=== PATIENT | female | born 1990 | race Caucasian/White ===

== ENCOUNTER 2016-02-26 18:42 | Emergency (ER) | payer OTHER ==
[~2016-02-26] VITALS: Ht 162.6 cm; Wt 103.4 kg
[~2016-02-26 18:42] MED LIST: CLINDAMYCIN HC300 MG PO
[2016-02-26 19:08] LABS: HEMATOCRIT 43.2 % (36.0-46.0); MCH 29.1 PG (29.0-34.0); MCHC 33.8 G/DL (30.0-36.0); MCV 86.1 FL (83-99); MEAN PLAT.VOLUME 9.3 uM^3 (9.5-12.4); PLATELET COUNT 268 K/uL (156-360); RBC DIS.WIDTH-CV 13.3 % (11.8-14.6); RBC DIS.WIDTH-SD 41.2 % (39-53); RED BLOOD COUNT 5.02 M/uL (3.80-5.20); WHITE BLOOD COUNT 11.8 K/uL (4.1-10.2)
[2016-02-26] MEDS ORDERED: NITROFURANTOIN100 M3 PO (20:11)
[2016-02-26] MEDS ORDERED: VITAFOL-OB+DHA1 EACH PO (20:12)
[2016-02-26] MEDS ORDERED: OMEPRAZOLE20 MG PO (20:12)
[2016-02-26 20:21] LABS: ADD MIUA? YES; BILIRUBIN NEGATIVE; BLOOD LARGE; COLOR YELLOW ((YELLOW)); GLUCOSE (STRIP) NEGATIVE; KETONES 15; LEUKOCYTES NEGATIVE; NITRITE NEGATIVE; PH, URINE 5.5 (5-8); PROTEIN (STRIP) NEGATIVE; SPECIFIC GRAVITY 1.028 (1.000-1.030); UROBILINOGEN 0.2 MG/DL (0.2-1.0)
[2016-02-26 20:53] LABS: MUCUS NONE SEEN; RED BLOOD CELLS 20-30 /HPF (0-5); WHITE BLOOD CELLS NONE SEEN /HPF (0-5)
[2016-02-26 20:54] LABS: BACTERIA RARE; CASTS NONE SEEN /LPF; CRYSTALS NONE SEEN; EPITHELIAL CELLS 1+; UCUL ADDED? NO
[2016-02-26] MEDS ORDERED: PERCOCET 7.51 TABLET PO (22:01)
[2016-02-26] MEDS ORDERED: COLACE100 MG PO (22:01)
[2016-02-26 22:50] VITALS: BP 140/93
== END 2016-02-26 22:51 | disposition home or self-care (01) ==
LOC: EME 18:42
DX: O03.9 Complete or unspecified spontaneous abortion without complication (principal); Z87.891 Personal history of nicotine dependence
CPT/HCPCS: 76801; 81003; 84702; 85027; 86900; 86901; 88305; 99281; 99284

== ENCOUNTER 2017-08-31 12:54 | Emergency (ER) | payer OTHER ==
[~2017-08-31] VITALS: Ht 162.6 cm; Wt 107.0 kg
[~2017-08-31 12:54] MED LIST changes: +COLACE100 MG PO; +NITROFURANTOIN100 M3 PO; +OMEPRAZOLE20 MG PO; +PERCOCET 7.51 TABLET PO; +VITAFOL-OB+DHA1 EACH PO
[2017-08-31 13:45] LABS: HEMATOCRIT 41.8 % (36.0-46.0); MCH 27.6 PG (29.0-34.0); MCHC 33.5 G/DL (30.0-36.0); MCV 82.4 FL (83-99); PLATELET COUNT 285 K/uL (156-360); RBC DIS.WIDTH-CV 14.3 % (11.8-14.6); RBC DIS.WIDTH-SD 43.1 % (39-53); RED BLOOD COUNT 5.07 M/uL (3.80-5.20); WHITE BLOOD COUNT 10.1 K/uL (4.1-10.2)
[2017-08-31 13:55] LABS: CHLORIDE 105 mEq/L (99-109); POTASSIUM 3.9 mEq/L (3.7-5.4); SODIUM 139 mEq/L (136-147)
[2017-08-31 13:57] LABS: GLUCOSE 91 mg/dL (70-99)
[2017-08-31 14:01] LABS: GFR ESTIMATE (CALCULATED) > 59 mL/min/; UREA NITROGEN (BUN) 14 mg/dL (9-23)
[2017-08-31 14:09] LABS: ALBUMIN 4.2 g/dL (3.2-4.8)
[2017-08-31 14:12] LABS: TOTAL PROTEIN 7.5 g/dL (6.4-8.3)
[2017-08-31 14:14] LABS: TOTAL BILIRUBIN 0.2 mg/dL (0.0-1.0)
[2017-08-31 14:15] LABS: ALKALINE PHOSPHATASE 129 IU/L (3-129)
[2017-08-31 14:17] LABS: AST (GOT) 17 IU/L (2-34)
[2017-08-31 14:18] LABS: ALT (GPT) 21 IU/L (3-49); DIRECT BILIRUBIN 0.1 mg/dL (0.0-0.3)
[2017-08-31 14:19] LABS: LIPASE 12 U/L (1.0-51.0)
[2017-08-31 15:24] LABS: APPEARANCE SL.HAZY ((CLEAR)); BILIRUBIN NEGATIVE; BLOOD NEGATIVE; COLOR YELLOW ((YELLOW)); GLUCOSE (STRIP) NEGATIVE; KETONES NEGATIVE; LEUKOCYTES MODERATE; NITRITE POSITIVE; PROTEIN (STRIP) NEGATIVE; SPECIFIC GRAVITY 1.019 (1.000-1.030); UROBILINOGEN 0.2 MG/DL (0.2-1.0)
[2017-08-31 15:34] LABS: BACTERIA RARE /HPF; EPITHELIAL CELLS 1+ /HPF; MUCUS TRACE /LPF; RED BLOOD CELLS 0-5 /HPF (0-5); UCUL ADDED? YES; WHITE BLOOD CELLS 15-20 /HPF (0-5)
[2017-08-31] MEDS ORDERED: MOTRIN800 MG PO (16:01)
[2017-08-31] MEDS ORDERED: CIPRO500 MG PO (16:01)
[2017-08-31 16:11] VITALS: BP 108/63
== END 2017-08-31 16:11 | disposition home or self-care (01) ==
LOC: EME 12:54
DX: N39.0 Urinary tract infection, site not specified (principal); R10.13 Epigastric pain; R06.02 Shortness of breath; F17.200 Nicotine dependence, unspecified, uncomplicated
CPT/HCPCS: 71046; 80048; 80076; 81003; 83690; 85027; 87077; 87086; 87186

== ENCOUNTER 2017-09-21 17:12 | Inpatient (IN) | payer SELFPAY ==
[~2017-09-21] VITALS: Ht 162.6 cm; Wt 117.3 kg
[~2017-09-21 17:12] MED LIST changes: +CIPRO500 MG PO; +MOTRIN800 MG PO
[2017-09-21 17:45] LABS: HEMATOCRIT 42.7 % (36.0-46.0); HEMOGLOBIN 14.4 G/DL (11.9-15.5); MCH 27.8 PG (29.0-34.0); MCHC 33.7 G/DL (30.0-36.0); MCV 82.4 FL (83-99); PLATELET COUNT 302 K/uL (156-360); RBC DIS.WIDTH-CV 13.5 % (11.8-14.6); RBC DIS.WIDTH-SD 40.3 % (39-53); RED BLOOD COUNT 5.18 M/uL (3.80-5.20)
[2017-09-21 17:58] LABS: ALBUMIN 4.1 g/dL (3.2-4.8)
[2017-09-21 17:59] LABS: CHLORIDE 108 mEq/L (99-109); SODIUM 141 mEq/L (136-147)
[2017-09-21 18:01] LABS: GLUCOSE 145 mg/dL (70-99); TOTAL PROTEIN 7.4 g/dL (6.4-8.3)
[2017-09-21 18:03] LABS: TOTAL BILIRUBIN 0.9 mg/dL (0.0-1.0)
[2017-09-21 18:04] LABS: ALKALINE PHOSPHATASE 155 IU/L (3-129)
[2017-09-21 18:05] LABS: CREATININE 0.9 mg/dL (0.6-1.3); GFR ESTIMATE (CALCULATED) > 59 mL/min/
[2017-09-21 18:06] LABS: UREA NITROGEN (BUN) 12 mg/dL (9-23)
[2017-09-21 18:08] LABS: ALT (GPT) 57 IU/L (3-49)
[2017-09-21 18:13] LABS: QUANTITATIVE HCG < 4.0 MIU/ML
[2017-09-21 18:27] LABS: AST (GOT) 75 IU/L (2-34); LIPASE 6 U/L (1.0-51.0)
[2017-09-21] MEDS ORDERED: IBUPROFEN800 MG PO (21:44)
[2017-09-21] MEDS ORDERED: CIPROFLOXACIN500 M1 PO (21:44)
[2017-09-21] MEDS ORDERED: ZANTAC150 MG PO (21:45)
[2017-09-21 22:31] LABS: APPEARANCE CLEAR ((CLEAR)); BILIRUBIN NEGATIVE; BLOOD LARGE; COLOR YELLOW ((YELLOW)); GLUCOSE (STRIP) NEGATIVE; KETONES 5; LEUKOCYTES NEGATIVE; NITRITE NEGATIVE; PROTEIN (STRIP) NEGATIVE; SPECIFIC GRAVITY 1.047 (1.000-1.030)
[2017-09-21 22:48] LABS: BACTERIA RARE /HPF; EPITHELIAL CELLS RARE /HPF; MUCUS TRACE /LPF; RED BLOOD CELLS TNTC /HPF (0-5); UCUL ADDED? YES
[2017-09-21 23:53] VITALS: BP 101/57
[2017-09-22] VITALS (7 sets, daily range): BP systolic 102–138; BP diastolic 55–72
[2017-09-22 02:12] LABS: BENZODIAZEPINES, URINE SCREEN Negative (200 ng/mL)
[2017-09-22 05:48] LABS: CHLORIDE 111 MEQ/L (99-109); CREATININE 0.7 MG/DL (0.6-1.3); GFR ESTIMATE (CALCULATED) > 59 mL/min/; HEMATOCRIT 36.6 % (36.0-46.0); MCHC 33.3 G/DL (30.0-36.0); MCV 83.9 FL (83-99); POTASSIUM 4.1 MEQ/L (3.7-5.4); RBC DIS.WIDTH-CV 13.7 % (11.8-14.6); RBC DIS.WIDTH-SD 42.3 % (39-53); RED BLOOD COUNT 4.36 M/uL (3.80-5.20); SODIUM 141 MEQ/L (136-147); UREA NITROGEN (BUN) 7 mg/dL (9-23); WHITE BLOOD COUNT 9.3 K/uL (4.1-10.2)
[2017-09-22 05:53] LABS: HEMOGLOBIN 12.2 G/DL (11.9-15.5)
[2017-09-22 05:57] LABS: PLAT.SUFFICIENCY ADEQUATE
[2017-09-22 05:59] LABS: PLATELET COUNT 202 K/uL (156-360)
[2017-09-22 06:08] LABS: GLUCOSE 106 mg/dL (70-99)
[2017-09-22 10:57] LABS: ALBUMIN 3.3 G/DL (3.2-4.8); ALKALINE PHOSPHATASE 121 IU/L (3-129); ALT (GPT) 170 IU/L (3-49); AST (GOT) 180 IU/L (2-34); DIRECT BILIRUBIN 1.2 mg/dL (0.0-0.3); TOTAL BILIRUBIN 1.9 MG/DL (0.0-1.0); TOTAL PROTEIN 5.7 G/DL (6.4-8.3)
[2017-09-22 12:18] LABS: HEMOGLOBIN 12.6 G/DL (11.9-15.5); MCH 27.9 PG (29.0-34.0); MCHC 33.2 G/DL (30.0-36.0); MCV 84.1 FL (83-99); PLATELET COUNT 217 K/uL (156-360); RBC DIS.WIDTH-CV 13.9 % (11.8-14.6); RBC DIS.WIDTH-SD 42.7 % (39-53); RED BLOOD COUNT 4.52 M/uL (3.80-5.20); WHITE BLOOD COUNT 7.8 K/uL (4.1-10.2)
[2017-09-23 08:25] VITALS: BP 112/66
[2017-09-23 15:36] VITALS: BP 128/70
[2017-09-23] MEDS ORDERED: ULTRAM50 MG PO (15:43)
== END 2017-09-23 17:19 | disposition home or self-care (01) | DRG 418 ==
LOC: EME 17:12 → EDOF 22:55 → ENRESERV 22:56 → 4EAST 23:31 → ENRESERV 09-22 08:13 → 2EAST 09-22 10:29 → ENPENDDIS 09-23 16:09 → 2EAST 09-23 17:19
PROVIDERS: Hospitalist; Surgery
PROC: 0FT44ZZ Resection of Gallbladder, Percutaneous Endoscopic Approach (ICD-10-PCS; principal; 2017-09-23)
DX: K80.12 Calculus of gallbladder with acute and chronic cholecystitis without obstruction (principal); F17.210 Nicotine dependence, cigarettes, uncomplicated; K21.9 Gastro-esophageal reflux disease without esophagitis; E66.9 Obesity, unspecified; Z68.41 Body mass index [BMI] 40.0-44.9, adult; Z83.3 Family history of diabetes mellitus; Z82.49 Family history of ischemic heart disease and other diseases of the circulatory system; Z79.899 Other long term (current) drug therapy
CPT/HCPCS: 74177; 76705; 80048; 80053; 80076; 80306 90; 81003; 83605; 83630; 83690; 84443; 84702; 85027; 87040; 87086; 87493; 87506; 87641; 88304; 93005; 99281; 99285; C9113; J1100; J1885; J1956; J2250; J2270; J2405; J2543; J2710; J2765; J3010; J7030; J7643; S0028

== ENCOUNTER 2017-09-24 03:22 | Inpatient (IN) | payer SELFPAY ==
[~2017-09-24] VITALS: Ht 162.6 cm; Wt 103.1 kg
[~2017-09-24 03:22] MED LIST changes: +CIPROFLOXACIN500 M1 PO; +IBUPROFEN800 MG PO; +ULTRAM50 MG PO; +ZANTAC150 MG PO
[2017-09-24 04:10] LABS: BASOPHIL (%) 0.1 % (0-1); EOSINOPHIL (%) 0 % (0-5); HEMATOCRIT 41.3 % (36.0-46.0); HEMOGLOBIN 14.2 G/DL (11.9-15.5); IMMATURE GRANULOCYTE (%) 0.4 % (0.0-0.7); LYMPHOCYTE (%) 7.8 % (15-42); LYMPHOCYTE COUNT 1.3 K/uL (1.0-2.8); MCH 28.1 PG (29.0-34.0); MCHC 34.4 G/DL (30.0-36.0); MCV 81.8 FL (83-99); MONOCYTE (%) 9.3 % (3-12); MONOCYTE COUNT 1.6 K/uL (0-0.8); NEUTROPHIL (%) 82.4 % (45-76); NEUTROPHIL COUNT 14.1 K/uL (1.8-6.4); PLATELET COUNT 275 K/uL (156-360); RBC DIS.WIDTH-CV 13.8 % (11.8-14.6); RBC DIS.WIDTH-SD 40.4 % (39-53); RED BLOOD COUNT 5.05 M/uL (3.80-5.20); WHITE BLOOD COUNT 17.1 K/uL (4.1-10.2)
[2017-09-24 04:18] LABS: ALBUMIN 4.2 g/dL (3.2-4.8); CHLORIDE 103 mEq/L (99-109); POTASSIUM 3.8 mEq/L (3.7-5.4); SODIUM 137 mEq/L (136-147)
[2017-09-24 04:21] LABS: GLUCOSE 121 mg/dL (70-99); TOTAL PROTEIN 7.6 g/dL (6.4-8.3)
[2017-09-24 04:24] LABS: CREATININE 0.9 mg/dL (0.6-1.3); GFR ESTIMATE (CALCULATED) > 59 mL/min/
[2017-09-24 04:25] LABS: UREA NITROGEN (BUN) 7 mg/dL (9-23)
[2017-09-24 04:28] LABS: LIPASE 33 U/L (1.0-51.0)
[2017-09-24 04:29] LABS: ALKALINE PHOSPHATASE 325 IU/L (3-129); ALT (GPT) 479 IU/L (3-49); AST (GOT) 254 IU/L (2-34); TOTAL BILIRUBIN 4.3 mg/dL (0.0-1.0)
[2017-09-24 08:02] VITALS: BP 115/57
[2017-09-24 13:45] VITALS: BP 127/71
[2017-09-24 20:09] VITALS: BP 118/68
[2017-09-24 21:24] VITALS: BP 108/68
[2017-09-24 23:51] VITALS: BP 110/64
[2017-09-25 04:07] VITALS: BP 110/62
[2017-09-25 06:13] LABS: BASOPHIL (%) 0.1 % (0-1); EOSINOPHIL (%) 0 % (0-5); HEMATOCRIT 37.9 % (36.0-46.0); HEMOGLOBIN 12.9 G/DL (11.9-15.5); IMMATURE GRANULOCYTE (%) 0.3 % (0.0-0.7); LYMPHOCYTE (%) 17.1 % (15-42); LYMPHOCYTE COUNT 1.8 K/uL (1.0-2.8); MCH 28.2 PG (29.0-34.0); MCV 82.9 FL (83-99); MONOCYTE (%) 11.4 % (3-12); MONOCYTE COUNT 1.2 K/uL (0-0.8); NEUTROPHIL (%) 71.1 % (45-76); NEUTROPHIL COUNT 7.3 K/uL (1.8-6.4); PLATELET COUNT 220 K/uL (156-360); RBC DIS.WIDTH-CV 14.3 % (11.8-14.6); RBC DIS.WIDTH-SD 42.4 % (39-53); RED BLOOD COUNT 4.57 M/uL (3.80-5.20); WHITE BLOOD COUNT 10.2 K/uL (4.1-10.2)
[2017-09-25 07:24] LABS: ALBUMIN 3.6 G/DL (3.2-4.8); AST (GOT) 128 IU/L (2-34); CHLORIDE 102 MEQ/L (99-109); CREATININE 0.7 MG/DL (0.6-1.3); GFR ESTIMATE (CALCULATED) > 59 mL/min/; GLUCOSE 99 mg/dL (70-99); LIPASE 261 U/L (1.0-51.0); POTASSIUM 3.6 MEQ/L (3.7-5.4); SODIUM 138 MEQ/L (136-147); TOTAL PROTEIN 5.9 G/DL (6.4-8.3); UREA NITROGEN (BUN) 5 mg/dL (9-23)
[2017-09-25 07:26] LABS: ALKALINE PHOSPHATASE 341 IU/L (3-129); ALT (GPT) 332 IU/L (3-49); TOTAL BILIRUBIN 3.8 MG/DL (0.0-1.0)
[2017-09-25 08:39] VITALS: BP 116/55
[2017-09-25 11:51] VITALS: BP 116/57
[2017-09-25 15:58] VITALS: BP 124/59
[2017-09-25 19:10] VITALS: BP 115/72
[2017-09-25 23:30] VITALS: BP 113/78; BP 118/78
[2017-09-26 06:47] LABS: BASOPHIL (%) 0.3 % (0-1); EOSINOPHIL (%) 0.9 % (0-5); EOSINOPHIL COUNT 0.1 K/uL (0-0.3); HEMATOCRIT 41.1 % (36.0-46.0); HEMOGLOBIN 13.7 G/DL (11.9-15.5); IMMATURE GRANULOCYTE (%) 0.4 % (0.0-0.7); LYMPHOCYTE (%) 22.7 % (15-42); LYMPHOCYTE COUNT 2.3 K/uL (1.0-2.8); MCH 27.7 PG (29.0-34.0); MCHC 33.3 G/DL (30.0-36.0); MCV 83.2 FL (83-99); MONOCYTE COUNT 0.9 K/uL (0-0.8); NEUTROPHIL (%) 66.7 % (45-76); NEUTROPHIL COUNT 6.7 K/uL (1.8-6.4); PLATELET COUNT 234 K/uL (156-360); RBC DIS.WIDTH-CV 14.1 % (11.8-14.6); RBC DIS.WIDTH-SD 42.6 % (39-53); RED BLOOD COUNT 4.94 M/uL (3.80-5.20)
[2017-09-26 07:16] LABS: ALBUMIN 3.6 G/DL (3.2-4.8); ALKALINE PHOSPHATASE 324 IU/L (3-129); ALT (GPT) 276 IU/L (3-49); AST (GOT) 82 IU/L (2-34); CHLORIDE 100 MEQ/L (99-109); CREATININE 0.7 MG/DL (0.6-1.3); GFR ESTIMATE (CALCULATED) > 59 mL/min/; GLUCOSE 82 mg/dL (70-99); LIPASE 13 U/L (1.0-51.0); POTASSIUM 3.5 MEQ/L (3.7-5.4); SODIUM 138 MEQ/L (136-147); TOTAL PROTEIN 6.1 G/DL (6.4-8.3); UREA NITROGEN (BUN) 7 mg/dL (9-23)
[2017-09-26 07:17] LABS: TOTAL BILIRUBIN 1.6 MG/DL (0.0-1.0)
[2017-09-26 07:59] VITALS: BP 99/58
[2017-09-26 09:59] VITALS: BP 99/58
[2017-09-26] MEDS ORDERED: OXYCODONE-APAP1 EACH PO (13:42)
== END 2017-09-26 15:34 | disposition home or self-care (01) | DRG 439 ==
LOC: EME 03:22 → 2EAST 06:14 → EDOF 06:14 → ENRESERV 06:15 → 2EAST 07:21 → ENPENDDIS 09-26 14:40 → 2EAST 09-26 15:34
PROVIDERS: Emergency Medicine; Physician Assistant Medical
PROC: 0W9G40Z Drainage of Peritoneal Cavity with Drainage Device, Percutaneous Endoscopic Approach (ICD-10-PCS; principal; 2017-09-24)
DX: K85.90 Acute pancreatitis without necrosis or infection, unspecified (principal); R93.2 Abnormal findings on diagnostic imaging of liver and biliary tract; J90 Pleural effusion, not elsewhere classified; F41.9 Anxiety disorder, unspecified; K21.9 Gastro-esophageal reflux disease without esophagitis; E66.9 Obesity, unspecified; F17.200 Nicotine dependence, unspecified, uncomplicated; F12.90 Cannabis use, unspecified, uncomplicated; Z68.39 Body mass index [BMI] 39.0-39.9, adult
CPT/HCPCS: 71045; 71275; 74177; 74181; 80053; 83690; 85025; 99281; 99285; J0131; J0295; J0330; J1100; J1170; J1885; J2250; J2270; J2405; J2710; J3010; J7030; J7050; J7643